=== PATIENT | female | born 1970 ===

== ENCOUNTER 2016-09-26 10:04 | Emergency (ER) | payer SELFPAY ==
[~2016-09-26] VITALS: Ht 157.5 cm; Wt 61.5 kg
[2016-09-26 10:09] VITALS: BP 164/80; PULSE 102; RESP 16; TEMP 97.8; O2SAT 98
--- NOTE | 2016-09-26 11:46 | PD ---
HPI Chief Complaint: ENT Complaint Time Seen by Provider: 11:46 Travel History International Travel<30 days: Yes Contact w/Intl Traveler<30days: Yes Name of Country Traveled to: [place] 09/03/16 Traveled to known affect area: No History of Present Illness HPI 45-year-old female presents to the emergency department for evaluation of a sore throat that has been ongoing for over a month. She states that she had cold symptoms with a sore throat. She states she was seen approximately one month ago at [facility] and a strep swab was completed which was negative. She states that her sore throat has persisted. She denies any other symptoms or complaints at this time. She has not followed up outpatient. No fevers or chills. No difficulty swallowing or breathing. Patient is handling her secretions well. She denies any chronic medical problems or taking any prescribed medications. History Social History Alcohol Use: No Tobacco Use: No Allergies-Medications (Allergen,Severity, Reaction): Coded Allergies: No Known Allergies (Unverified , 09/26/16) Reported Meds & Prescriptions Reported Meds & Active Scripts Active No Active Prescriptions or Reported Medications Review of Systems Except as stated in HPI: all other systems reviewed are Neg Physical Exam Narrative GENERAL: Well-developed well-nourished female patient, ambulatory. Afebrile. SKIN: Warm and dry. HEAD: Normocephalic. Atraumatic. ENT: Mucosa pink and moist. No erythema or exudates. No uvular edema. No uvular , palatal, or tonsillar deviation. Airway patent. Nasal turbinates appear normal without nasal blood, purulent drainage or septal hematoma. Bilateral tympanic membranes are clear without erythema or perforation. EYES: No scleral icterus. No injection or drainage. NECK: Supple, trachea midline. No JVD or lymphadenopathy. CARDIOVASCULAR: Regular rate and rhythm without murmurs, gallops, or rubs. RESPIRATORY: Breath sounds equal bilaterally. No accessory muscle use. Lungs sounds are clear to auscultation throughout. GASTROINTESTINAL: Abdomen soft, non-tender, nondistended. MUSCULOSKELETAL: No cyanosis, or edema. BACK: Nontender without obvious deformity. No CVA tenderness. Data Data Last Documented VS Vital Signs Date Time Temp Pulse Resp B/P Pulse Ox O2 Delivery O2 Flow Rate FiO2 09/26/16 12:02 92 09/26/16 10:09 97.8 16 164/80 98 Room Air [facility] Medical Screen Exam Complete: Yes Emergency Medical Condition: No Differential Diagnosis chronic sore throat versus viral pharyngitis Narrative Course 45-year-old female presents to the emergency department for evaluation of sore throat for over a month. She has already been seen at another hospital has not followed up outpatient. Physical exam is unremarkable. I instructed on need to follow up with a primary care physician or ENT physician. No emergent condition is identified on today's exam. A medical screening exam was performed: At the time of evaluation the presenting medical condition was determined not to be of an emergent nature. The patient was given the option of receiving additional care, but declined. Patient was given options for additional community resources from which to obtain care. The Patient Has Been advised to seek medical attention for their presenting complaint. The patient has been advised to return to the ER at any time if an emergent condition develops. Primary Impression: Encounter for medical screening examination Scripts No Active Prescriptions or Reported Meds Condition: Radha Badillo Sep 26, 2016 11:46
[2016-09-26 12:02] VITALS: PULSE 92
== END 2016-09-26 12:21 | disposition left against medical advice (07) ==
LOC: NEPB 10:04
DX: J02.9 Acute pharyngitis, unspecified (principal)
CPT/HCPCS: 99281